=== PATIENT | male | born 1935 | race Caucasian/White ===

== ENCOUNTER 2020-12-20 13:55 | Inpatient (IN) | payer MEDICARE, OTHER ==
[~2020-12-20] VITALS: Ht 182.9 cm; Wt 119.9 kg
[~2020-12-20 13:55] MED LIST: AUGMENTIN 875-1 EACH PO; BENTYL 20MG TAB20 MG PO; COLACE100 MG PO; DOCUSATE SODIU100 MG PO; ECOTRIN81 MG PO; FLOMAX0.4 MG PO; IBU800 MG PO; LASIX 40 MG TAB40 MG PO; LEVAQUIN500 MG PO; LOPRESSOR 25 MG25 MG PO; LOSARTAN-HCTZ1 EAC1 PO; LOSARTAN-HCTZ1 EACH PO; MEDROL DOSEPAK 24 MG PO; METOPROLOL SUCC25 MG PO; MIRALAX 119 GR119 GM PO; MUCINEX600 MG PO; NORCO 5-325 TA1 EACH PO; PREVACID30 MG PO; PROAIR HFA8.5 GM INH; SYMBICORT 16010.2 GM INH; TYLENOL WITH C1 EACH PO; VALSARTAN80 MG PO; ZANTAC 7575 MG PO; ZOFRAN4 MG PO; ZOVIRAX 800 MG800 MG PO
[2020-12-20 15:51] LABS: HEMOGLOBIN 15.6 gm/dl (14.0-17.5); RED BLOOD COUNT 5.57 M/UL (4.20-5.50); WHITE BLOOD COUNT 8.2 K/UL (4.5-11.0)
[2020-12-20 18:00] LABS: BUN/CREATININE RATIO 22 (0-10)
[2020-12-20] MEDS ORDERED: GLUCOPHAGE500 MG PO (19:05)
[2020-12-20] MEDS ORDERED: FLOMAX 0.4 MG0.4 MG PO (19:06)
[2020-12-20] MEDS ORDERED: DAILY MULTIPLE1 EAC1 PO (19:06)
[2020-12-21 04:13] LABS: HEMOGLOBIN 14.3 gm/dl (14.0-17.5); RED BLOOD COUNT 4.83 M/UL (4.20-5.50); WHITE BLOOD COUNT 9.2 K/UL (4.5-11.0)
[2020-12-21 04:35] LABS: BUN/CREATININE RATIO 22 (0-10)
[2020-12-22 03:10] LABS: HEMOGLOBIN 14.2 gm/dl (14.0-17.5); RED BLOOD COUNT 4.8 M/UL (4.20-5.50)
[2020-12-22 03:13] LABS: WHITE BLOOD COUNT 11.7 K/UL (4.5-11.0)
--- NOTE | 2020-12-22 03:19 | NUR ---
PT HAS REFUSED TO WEAR BIPAP FOR THE ENTIRE NIGHT. PT RESTING COMFORTABLY WITH NO ISSUES DETECTED. TM
[2020-12-22 03:29] LABS: BUN/CREATININE RATIO 31 (0-10)
[2020-12-23 03:51] LABS: HEMOGLOBIN 14.3 gm/dl (14.0-17.5); RED BLOOD COUNT 5.04 M/UL (4.20-5.50); WHITE BLOOD COUNT 11.7 K/UL (4.5-11.0)
[2020-12-23 03:58] LABS: BUN/CREATININE RATIO 34 (0-10)
[2020-12-23] MEDS ORDERED: FUROSEMIDE20 MG PO (11:11)
[2020-12-23] MEDS ORDERED: CEFUROXIME250 MG PO (11:11)
[2020-12-23] MEDS ORDERED: MEDROL DOSEPAK 24 MG PO (11:12)
[2020-12-23] MEDS ORDERED: COLACE 100MG C100 MG PO (11:51)
[2020-12-25 01:08] LABS: D001-IGE D PTERONYSSINUS 4.18 kU/L (Class IV); D002-IGE D FARINAE 2.48 kU/L (Class III); E001-IGE CAT DANDER <0.10 kU/L (Class 0); E005-IGE DOG DANDER <0.10 kU/L (Class 0); G002-IGE BERMUDA GRASS <0.10 kU/L (Class 0); G006-IGE TIMOTHY GRASS <0.10 kU/L (Class 0); M001-IGE PENICILLIUM CHRYSOGEN <0.10 kU/L (Class 0); M002-IGE CLADOSPORIUM HERBARUM <0.10 kU/L (Class 0); M003-IGE ASPERGILLUS FUMIGATUS <0.10 kU/L (Class 0); M006-IGE ALTERNARIA ALTERNATA <0.10 kU/L (Class 0); T001-IGE MAPLE/BOX ELDER <0.10 kU/L (Class 0); T003-IGE COMMON SILVER BIRCH <0.10 kU/L (Class 0); T006-IGE CEDAR, MOUNTAIN <0.10 kU/L (Class 0); T007-IGE OAK, WHITE <0.10 kU/L (Class 0); T010-IGE WALNUT <0.10 kU/L (Class 0); T011-IGE MAPLE LEAF SYCAMORE <0.10 kU/L (Class 0); T014-IGE COTTONWOOD <0.10 kU/L (Class 0); T015-IGE ASH, WHITE <0.10 kU/L (Class 0); T070-IGE WHITE MULBERRY <0.10 kU/L (Class 0); W001-IGE RAGWEED, SHORT <0.10 kU/L (Class 0); W018-IGE SHEEP SORREL <0.10 kU/L (Class 0)
== END 2020-12-23 16:35 | disposition home health service (06) | DRG 291 ==
LOC: ER1 13:55 → CDU 20:12 → M/S 12-21 18:08
PROVIDERS: Family Medicine; Nurse Practitioner Family; ADMIT Hospitalist
PROC: 5A09457 Assistance with Respiratory Ventilation, 24-96 Consecutive Hours, Continuous Positive Airway Pressure (ICD-10-PCS; principal; 2020-12-20)
DX: I11.0 Hypertensive heart disease with heart failure (principal); J96.21 Acute and chronic respiratory failure with hypoxia; J96.22 Acute and chronic respiratory failure with hypercapnia; E66.2 Morbid (severe) obesity with alveolar hypoventilation; J44.1 Chronic obstructive pulmonary disease with (acute) exacerbation; I50.33 Acute on chronic diastolic (congestive) heart failure; I35.0 Nonrheumatic aortic (valve) stenosis; K21.9 Gastro-esophageal reflux disease without esophagitis; N40.0 Benign prostatic hyperplasia without lower urinary tract symptoms; Z20.822 Contact with and (suspected) exposure to COVID-19; J30.9 Allergic rhinitis, unspecified; Z86.73 Personal history of transient ischemic attack (TIA), and cerebral infarction without residual deficits; I25.10 Atherosclerotic heart disease of native coronary artery without angina pectoris; Z88.2 Allergy status to sulfonamides; Z79.899 Other long term (current) drug therapy; Z79.82 Long term (current) use of aspirin
CPT/HCPCS: 36415; 36600; 71045; 80048; 80053; 81001; 82550; 82553; 82785; 82803; 83874; 83880; 84484; 85025; 85027; 85610; 87070; 87205; 94640; 94660; 94664; 94760; 96372; 96374; 96375; 96376; 97110-GP-CQ; 97116-GP-CQ; 97162; 99285; J0696; J1120; J1650; J1940; J2920; U0002

== ENCOUNTER → 2021-06-13 | Outpatient (CLI) | payer MEDICARE, OTHER ==
[~2021-06-13] MED LIST changes: +CEFUROXIME250 MG PO; +COLACE 100MG C100 MG PO; +DAILY MULTIPLE1 EAC1 PO; +FLOMAX 0.4 MG0.4 MG PO; +FUROSEMIDE20 MG PO; +GLUCOPHAGE500 MG PO
== END ==
LOC: KOH-I 11:52
DX: R06.02 Shortness of breath (principal); R91.8 Other nonspecific abnormal finding of lung field
CPT/HCPCS: 71046

== ENCOUNTER 2022-01-13 08:50 | Inpatient (IN) | payer MEDICARE, OTHER ==
[~2022-01-13] VITALS: Ht 182.9 cm; Wt 119.4 kg
[~2022-01-13 08:50] MED LIST changes: -FLOMAX 0.4 MG0.4 MG PO
[2022-01-13 09:13] LABS: HEMOGLOBIN 14.9 gm/dl (14.0-17.5); RED BLOOD COUNT 5.09 M/UL (4.20-5.50); WHITE BLOOD COUNT 10.8 K/UL (4.5-11.0)
[2022-01-13 09:38] LABS: BUN/CREATININE RATIO 33 (0-10)
[2022-01-13] MEDS ORDERED: HUMIBID LA TAB600 MG PO (12:33)
[2022-01-13] MEDS ORDERED: LOTRIMIN CREAM15 GM TP (12:35)
[2022-01-13] MEDS ORDERED: FLUOCINONIDE60 ML TOP (12:35)
[2022-01-13] MEDS ORDERED: FUROSEMIDE40 MG PO (12:39)
[2022-01-13] MEDS ORDERED: COLACE100 MG PO (12:42)
[2022-01-13] MEDS ORDERED: EX-LAX15 MG PO (12:43)
[2022-01-13] MEDS ORDERED: FLOMAX 0.4 MG0.4 MG PO (19:06)
[2022-01-14 04:18] LABS: HEMOGLOBIN 13.6 gm/dl (14.0-17.5); RED BLOOD COUNT 4.71 M/UL (4.20-5.50)
[2022-01-14 04:33] LABS: WHITE BLOOD COUNT 6.4 K/UL (4.5-11.0)
[2022-01-14 04:49] LABS: BUN/CREATININE RATIO 41 (0-10)
[2022-01-15 04:48] LABS: BUN/CREATININE RATIO 47 (0-10)
[2022-01-16 03:24] LABS: BUN/CREATININE RATIO 38 (0-10)
[2022-01-17 03:23] LABS: BUN/CREATININE RATIO 35 (0-10)
[2022-01-18 03:20] LABS: BUN/CREATININE RATIO 40 (0-10)
[2022-01-19 04:27] LABS: HEMOGLOBIN 13.6 gm/dl (14.0-17.5); RED BLOOD COUNT 4.74 M/UL (4.20-5.50); WHITE BLOOD COUNT 9.9 K/UL (4.5-11.0)
[2022-01-19 04:52] LABS: BUN/CREATININE RATIO 41 (0-10)
[2022-01-19] MEDS ORDERED: IPRAT-ALBUT 0.5-3 ML NEB (09:25)
[2022-01-19] MEDS ORDERED: ACETAZOLAMIDE250 MG PO (09:25)
[2022-01-19] MEDS ORDERED: HUMALOG 10100 UNITS/ SC (09:25)
[2022-01-19] MEDS ORDERED: BROVANA15 MCG/2 M NEB (09:25)
[2022-01-19] MEDS ORDERED: BUDESONIDE0.5 MG/2 M NEB (09:25)
[2022-01-19] MEDS ORDERED: COZAAR 25MG TAB25 MG PO (09:25)
--- NOTE | 2022-01-19 16:31 | NUR ---
PT LEAVING PER EMS AT THIS TIME NOTED
== END 2022-01-19 16:30 | DRG 291 ==
LOC: ER1 08:50 → CDU 10:46 → PROG CARE 10:46
PROVIDERS: Internal Medicine; Nurse Practitioner; Physician Assistant Medical; ADMIT Internal Medicine Infectious Disease
PROC: 5A09457 Assistance with Respiratory Ventilation, 24-96 Consecutive Hours, Continuous Positive Airway Pressure (ICD-10-PCS; principal; 2022-01-13)
PROC: 8E0ZXY6 Isolation (ICD-10-PCS; 2022-01-13)
PROC: 3E0333Z Introduction of Anti-inflammatory into Peripheral Vein, Percutaneous Approach (ICD-10-PCS; 2022-01-13)
PROC: B24BZZZ Ultrasonography of Heart with Aorta (ICD-10-PCS; 2022-01-14)
DX: I11.0 Hypertensive heart disease with heart failure (principal); I50.33 Acute on chronic diastolic (congestive) heart failure; J96.21 Acute and chronic respiratory failure with hypoxia; J96.22 Acute and chronic respiratory failure with hypercapnia; U07.1 COVID-19; E87.0 Hyperosmolality and hypernatremia; E87.1 Hypo-osmolality and hyponatremia; E66.2 Morbid (severe) obesity with alveolar hypoventilation; E87.2 Acidosis; J98.11 Atelectasis; F03.90 Unspecified dementia, unspecified severity, without behavioral disturbance, psychotic disturbance, mood disturbance, and anxiety; K21.9 Gastro-esophageal reflux disease without esophagitis; J30.9 Allergic rhinitis, unspecified; I25.10 Atherosclerotic heart disease of native coronary artery without angina pectoris; S90.821A Blister (nonthermal), right foot, initial encounter; K59.00 Constipation, unspecified; I35.0 Nonrheumatic aortic (valve) stenosis; G47.33 Obstructive sleep apnea (adult) (pediatric); L89.326 Pressure-induced deep tissue damage of left buttock; R53.81 Other malaise; T50.2X5A Adverse effect of carbonic-anhydrase inhibitors, benzothiadiazides and other diuretics, initial encounter; Z86.73 Personal history of transient ischemic attack (TIA), and cerebral infarction without residual deficits; Z82.49 Family history of ischemic heart disease and other diseases of the circulatory system; Z82.3 Family history of stroke; Z88.2 Allergy status to sulfonamides; Z95.810 Presence of automatic (implantable) cardiac defibrillator; I27.20 Pulmonary hypertension, unspecified; Z95.1 Presence of aortocoronary bypass graft; Z79.82 Long term (current) use of aspirin; Z79.899 Other long term (current) drug therapy; Z99.81 Dependence on supplemental oxygen; Z79.01 Long term (current) use of anticoagulants; Z79.4 Long term (current) use of insulin; Z86.16 Personal history of COVID-19; Z68.35 Body mass index [BMI] 35.0-35.9, adult
CPT/HCPCS: ECHO; 36415; 36600; 51702; 71045; 73130; 80048; 80053; 82550; 82553; 82803; 82962; 83605; 83735; 83874; 83880; 84443; 84484; 85025; 85027; 85610; 85652; 85730; 86140; 87040; 93005; 93306; 93970; 94640; 94660; 94664; 94760; 96374; 97116-GP-CQ; 97162; 97165; 97530; 97530-GP-CQ; 97535; 99285; J1100; J1120; J1644; J1940; U0002

== ENCOUNTER 2022-04-01 10:47 | Inpatient (IN) | payer MEDICARE, OTHER ==
[~2022-04-01] VITALS: Ht 182.9 cm; Wt 119.0 kg
[~2022-04-01 10:47] MED LIST changes: +ACETAZOLAMIDE250 MG PO; +BROVANA15 MCG/2 M NEB; +BUDESONIDE0.5 MG/2 M NEB; +CEFDINIR300 MG PO; +CENTRUM SILVER1 EAC2 PO; +COZAAR 25MG TAB25 MG PO; -DAILY MULTIPLE1 EAC1 PO; +EX-LAX15 MG PO; +FLOMAX 0.4 MG0.4 MG PO; +FLUOCINONIDE60 ML TOP; +FUROSEMIDE40 MG PO; +HUMALOG 10100 UNITS/ SC; +HUMIBID LA TAB600 MG PO; +IPRAT-ALBUT 0.5-3 ML NEB; +LOTRIMIN CREAM15 GM TP; +MUCUS RELIEF1200 MG PO
[2022-04-01 11:59] LABS: HEMOGLOBIN 13.4 gm/dl (14.0-17.5); RED BLOOD COUNT 4.53 M/UL (4.20-5.50); WHITE BLOOD COUNT 8.4 K/UL (4.5-11.0)
[2022-04-01 12:22] LABS: BUN/CREATININE RATIO 25 (0-10)
[2022-04-01] MEDS ORDERED: PROAIR HFA8.5 GM INH (16:48)
[2022-04-01] MEDS ORDERED: MUPIROCIN22 GM TOP (16:51)
[2022-04-01] MEDS ORDERED: KETOCONAZOLE120 ML TOP (16:53)
[2022-04-01] MEDS ORDERED: FUROSEMIDE40 MG PO (16:54)
[2022-04-01] MEDS ORDERED: METOPROLOL TART25 MG PO (16:58)
[2022-04-01] MEDS ORDERED: LOSARTAN-HCTZ1 EACH PO (16:58)
[2022-04-02 06:15] LABS: HEMOGLOBIN 13.1 gm/dl (14.0-17.5); RED BLOOD COUNT 4.51 M/UL (4.20-5.50); WHITE BLOOD COUNT 8.6 K/UL (4.5-11.0)
[2022-04-02 06:37] LABS: BUN/CREATININE RATIO 25 (0-10)
[2022-04-03 06:11] LABS: HEMOGLOBIN 13.4 gm/dl (14.0-17.5); RED BLOOD COUNT 4.53 M/UL (4.20-5.50); WHITE BLOOD COUNT 9.6 K/UL (4.5-11.0)
[2022-04-03 06:29] LABS: BUN/CREATININE RATIO 35 (0-10)
[2022-04-03] MEDS ORDERED: FUROSEMIDE40 MG PO (12:39)
[2022-04-03] MEDS ORDERED: DIAMOX 250 MG250 MG PO (12:44)
--- NOTE | 2022-04-03 15:41 | NUR ---
SPOKE WITH FAMILY ABOUT DISCHARGE INSTRUCTIONS THE DAUGHTER VERBALIZED UNDERSTANDING. THE SON CAME TO GET HIM AND HAD PT'S PORTABLE OXYGEN.
== END 2022-04-03 15:31 | disposition home or self-care (01) | DRG 177 ==
LOC: ER1 10:47 → M/S 12:54 → CDU 12:54 → M/S 18:09
PROVIDERS: Physician Assistant; ADMIT Internal Medicine
PROC: 8E0ZXY6 Isolation (ICD-10-PCS; principal; 2022-04-01)
PROC: 3E0333Z Introduction of Anti-inflammatory into Peripheral Vein, Percutaneous Approach (ICD-10-PCS; 2022-04-01)
PROC: B24BZZZ Ultrasonography of Heart with Aorta (ICD-10-PCS; 2022-04-02)
DX: U07.1 COVID-19 (principal); I50.33 Acute on chronic diastolic (congestive) heart failure; J96.21 Acute and chronic respiratory failure with hypoxia; E87.3 Alkalosis; J98.11 Atelectasis; J45.909 Unspecified asthma, uncomplicated; I10 Essential (primary) hypertension; Z95.810 Presence of automatic (implantable) cardiac defibrillator; Z79.01 Long term (current) use of anticoagulants; Z79.82 Long term (current) use of aspirin; Z99.81 Dependence on supplemental oxygen; Z82.49 Family history of ischemic heart disease and other diseases of the circulatory system; Z88.2 Allergy status to sulfonamides
CPT/HCPCS: 0240U; 36415; 71045; 80048; 80053; 82550; 82553; 82800; 82803; 83036; 83605; 83735; 83880; 84484; 85025; 85379; 85610; 86140; 87040; 93005; 93308; 94640; 94664; 94760; 96374; 96375; 96376; 97161; 97166; 99285; J0692; J1100; J1120; J1650; J1940; J1956; U0002